=== PATIENT | male | born 1940 | race Caucasian/White ===

== ENCOUNTER 2022-12-26 17:46 | Emergency (ER) | payer MEDICARE, OTHER | END 2022-12-26 19:23 | disposition home or self-care (01) | LOC: NAV ERS 17:46 | DX: T16.1XXA Foreign body in right ear, initial encounter (principal); I10 Essential (primary) hypertension; K21.9 Gastro-esophageal reflux disease without esophagitis; J44.9 Chronic obstructive pulmonary disease, unspecified; E78.00 Pure hypercholesterolemia, unspecified | CPT/HCPCS: 99282 ==